=== PATIENT | female | born 1990 | race Two or more races ===

== ENCOUNTER 2025-01-03 18:09 | Emergency (ER) | payer BC, MEDICAID ==
[~2025-01-03] VITALS: Ht 165.1 cm; Wt 59.0 kg
[2025-01-03 18:20] VITALS: BP 113/74
[2025-01-03 18:40] LABS: *BILIRUBIN,URIN NEGATIVE (NEGATIVE); *BLOOD, URINE 3+ (NEGATIVE); *COLOR,URINE YELLOW (YELLOW); *KETONES,URINE NEGATIVE (NEGATIVE); *PROTEIN,URINE 3+ (NEGATIVE); *UROBILINOGEN,URINE 0.2 E.U./dl (NORMAL); LEUKOCYTE ESTERASE ,URINE 2+ (NEGATIVE); NITRITE, URINE POSITIVE (NEGATIVE); UGLUCOSE NEGATIVE (NEGATIVE)
[2025-01-03 18:43] LABS: *CLARITY,URINE HAZY (CLEAR)
[2025-01-03 18:45] LABS: *URINE HCG, QUAL NEGATIVE (NEGATIVE)
[2025-01-03 18:48] LABS: SQUAMOUS EPITHELIAL CELL,UR MODERATE /HPF (NONE SEEN)
[2025-01-03] MEDS ORDERED: KETOROLAC TROMETHAMINE 30 MG INJ ONE (19:04)
[2025-01-03] MEDS ORDERED: SULFAMETH/TRIMETH 800/160 MG TABLET ONE (19:04)
[2025-01-03] MEDS: KETOROLAC TROMETHAMINE 30 MG INJ IVP ONE (19:09)
[2025-01-03] MEDS: SULFAMETH/TRIMETH 800/160 MG TABLET PO ONE (19:10)
[2025-01-03] MEDS: ACETAMINOPHEN 500 MG TABLET PO ONE (19:15)
[2025-01-03 19:29] LABS: PLATELET COUNT (AUTO) 158 K/uL (179-408); RED BLOOD CELL COUNT(AUTO) 3.30 MIL/uL (3.63-4.92); RED CELL DISTRIBUTION WIDTH 12.2 % (12.3-17.7); WHITE BLOOD COUNT (AUTO) 7.3 K/uL (3.8-11.8)
[2025-01-03 19:36] LABS: CREATININE 0.3 mg/dL (0.6-1.3); SODIUM SERUM 139 mmol/L (136-145); UREA NITROGEN, BLOOD 11 mg/dL (7-18)
[2025-01-03] MEDS ORDERED: SULF1TAB48 PO (20:09)
[2025-01-03] MEDS ORDERED: PHEN-705 PO (20:09)
[2025-01-03 20:27] VITALS: BP 115/71; O2SAT 98
== END 2025-01-03 20:16 | disposition home or self-care (01) ==
LOC: ER 18:26
DX: N39.0 Urinary tract infection, site not specified (principal)
CPT/HCPCS: 99283; 96374; 80048; 81001; 84703; 85025; 87186; 87086; 87077; 36415; J1885; A4606; A4663

== ENCOUNTER 2025-01-08 20:37 | Emergency (ER) | payer BC ==
[~2025-01-08] VITALS: Ht 165.1 cm; Wt 56.8 kg
[~2025-01-08 20:37] MED LIST: PHEN-705 PO; SULF1TAB48 PO
[2025-01-08] MEDS ORDERED: CEFEPIME HCL 2 GM VIAL ONE (21:09)
[2025-01-08 21:17] LABS: PLATELET COUNT (AUTO) 172 K/uL (179-408); RED BLOOD CELL COUNT(AUTO) 3.19 MIL/uL (3.63-4.92); RED CELL DISTRIBUTION WIDTH 12.1 % (12.3-17.7); WHITE BLOOD COUNT (AUTO) 8.0 K/uL (3.8-11.8)
[2025-01-08 21:18] LABS: *BLOOD, URINE 2+ (NEGATIVE); *CLARITY,URINE CLOUDY (CLEAR); *COLOR,URINE YELLOW (YELLOW); *KETONES,URINE 1+ (NEGATIVE); *PROTEIN,URINE 2+ (NEGATIVE); *UROBILINOGEN,URINE 4.0 E.U./dl (NORMAL); LEUKOCYTE ESTERASE ,URINE 3+ (NEGATIVE); NITRITE, URINE POSITIVE (NEGATIVE); UGLUCOSE NEGATIVE (NEGATIVE)
[2025-01-08 21:19] LABS: *BILIRUBIN,URIN 1+ (NEGATIVE)
[2025-01-08 21:28] LABS: CREATININE 0.8 mg/dL (0.6-1.3); SODIUM SERUM 135.0 mmol/L (136-145); UREA NITROGEN, BLOOD 12.0 mg/dL (7-18)
[2025-01-08] MEDS: CEFEPIME (MAXEPIME) 2 G in IV DEXTROSE 5% 100 ML IV ONE (21:30)
[2025-01-08] MEDS: IV NORMAL SALINE 1000 ML BAG IV ONE (21:30)
[2025-01-08 21:33] LABS: ASPARTATE AMINOTRANSFERASE 14.0 U/L (15-37); TOTAL PROTEIN, SERUM 8.3 g/dL (6.4-8.2)
[2025-01-08 22:18] VITALS: BP 102/62
[2025-01-08] MEDS ORDERED: CEPH500T PO (22:35)
[2025-01-08] MEDS ORDERED: HYDR-4209 PO (22:35)
[2025-01-08] MEDS ORDERED: ONDA4TAB11 PO (22:35)
[2025-01-08 23:29] VITALS: BP 103/64; TEMP 99.8; O2SAT 98
[2025-01-09] MEDS ORDERED: CEFD300C3 PO (10:43)
== END 2025-01-08 23:05 | disposition home or self-care (01) ==
LOC: ER 20:42
DX: N12 Tubulo-interstitial nephritis, not specified as acute or chronic (principal); R11.2 Nausea with vomiting, unspecified; R10.11 Right upper quadrant pain; R50.9 Fever, unspecified
CPT/HCPCS: 99285; 96365; 71045; 80076; 80048; 81001; 85025; 84145; 85730; 87040 ×2; 87186; 87086; 87077; 36415; 93005; 83605; J0692 ×2; J7040 ×2; A4606; A4663